=== PATIENT | male | born 1985 | race Caucasian/White ===

== ENCOUNTER 2022-09-16 10:10 | Emergency (ER) | payer MEDICAID ==
[~2022-09-16] VITALS: Ht 177.8 cm; Wt 68.0 kg
[2022-09-16 10:18] VITALS: BP 134/74
== END 2022-09-16 11:55 | disposition left against medical advice (07) ==
LOC: ER 10:14
DX: Z00.00 Encounter for general adult medical examination without abnormal findings (principal)
CPT/HCPCS: 99283